=== PATIENT | male | born 1935 | race Caucasian/White ===

== ENCOUNTER 2016-12-20 14:36 | Emergency (ER) | payer MEDICARE, OTHER ==
[~2016-12-20] VITALS: Ht 182.9 cm; Wt 53.6 kg
[~2016-12-20 14:36] MED LIST: ALEN70TA2 PO; GABA-502 PO; HYDR-3479 PO; MIRT15TA6 PO; RES15 PO; SIMV80TA4 PO; WARF4TAB6 PO
[2016-12-20 14:53] VITALS: BP 117/62; PULSE 67; RESP 16; O2SAT 95
[2016-12-20 15:20] LABS: BASOPHILS % (AUTO) 0.7 % (0-3); EOSINOPHILS % (AUTO) 0.7 % (0-5); MONOCYTES % (AUTO) 8.3 % (4-12); Mean Corpuscular Hemoglobin 30.3 pg (27.0-35.0); Mean Corpuscular Volume 91.6 fL (81-100); NEUTROPHILS % (AUTO) 71.6 % (40-74); Platelet Count 285 bil/L (150-400)
--- NOTE | 2016-12-20 15:27 | ED.REPORT ---
HPI-Stroke / CVA Dec 20, 2016 ED Provider: Hima Bryan MD The pt is a 81 y/o male w/ a hx of hyperlipidemia and a pulmonary embolism presenting to the ED complaining of vision changes. He describes seeing strange colors as well as his vision "coming and going". The pt had a routine eye appointment 6 weeks ago and was told to tell his PCP that he had a "peripheral problem". His PCP then become concerned that his vision changes were due to a stroke and sent him to the ED. The pt is also experiencing a headache. Nursing Notes Stated Complaint: BLURRED VISION, NUMBNESS OF THE HANDS Chief Complaint: Stroke Symptoms Nursing Notes Reviewed: Yes (SMX, indoo.rss not reconciled -on warfarin due to hx of PE) Allergies: Coded Allergies: rosuvastatin (Verified Allergy, Unknown, 12/20/16) pt unsure of allergy Scheduled Alendronate Sodium (Fosamax) 70 Mg Tablet 70 MG PO WEEKLY (Reported) Gabapentin (Gabapentin) 300 Mg Capsule 900 MG PO TID (Reported) Mirtazapine (Mirtazapine) 15 Mg Tablet 15 MG PO HS (Reported) Simvastatin (Simvastatin) 80 Mg Tablet 80 MG PO HS (Reported) Warfarin Sodium (Warfarin Sodium) 4 Mg Tablet 4 MG PO daily except ( Reported) Warfarin Sodium (Warfarin Sodium) 4 Mg Tablet 6 MG PO every tuesday (Reported ) Scheduled PRN Hydrocodone/Acetaminophen (Vicodin 5-300 mg Tablet) 1 Each Tablet 1 EACH PO Q4 PRN PRN For Pain (Reported) Temazepam (Temazepam) 15 Mg Capsule 15 MG PO HS PRN PRN For Insomnia (Reported) General Time Seen by Provider: 16:30 Chief Complaint Other (Vision changes ) Hx Obtained From: Patient Arrived By: Walk-in Time last known well 11/05/2016 Sudden in Onset?: Yes Progression Since Onset: Intermittent Recent Healthcare: No recent hospitalization, Recent doctor visit Similar Sx Previous: No Risk Factors NIH Stroke Scale Level of Consciousness: Alert and responsive (0) Ask Month & Age: Both questions right (0) Open/Close Eyes/Hand Freezer Laboratory Technician: Performs both tasks (0) Horizontal EO Movements: None (0) Visual Marquis: Complete hemianopsia (2) (on R. pt states occured prior to today, visual symptoms have resolved ) Facial Palsy: Normal symmetry (0) Right Leg Motor Drift (5s): No drift 5 sec (0) (Has a prosthetic heavy leg) Left Leg Motor Drift (5s): No drift 5 sec (0) Limb Ataxia FNF/Heel-Alarcon: No ataxia (0) Sensation (Arms/Legs/Face): No sensory loss (0) Language Aphasia: No aphasia, normal (0) Dysarthria: No dysarthria, normal (0) Extinction/Inattention: No exctinct/inattent (0) NIHSS Score: 2 Time NIHSS Performed: 15:38 Date NIHSS Performed: Dec 20, 2016 Past Medical History Past Medical History Notes: CT Brain noncontrast PCP 12/13/16 w/old L occipital infarct Past Medical History Peripheral vascular disease Restless leg syndrome Phantom limb pain Previous L Hip Fracture Dysphagia Acute Pericarditis Heart Murmur Thrombophlebitis COPD Pneumonia Pulmonary Embolism (coumadin therapy) Gastroesphageal Reflux Anxiety R homonymous hemianopsia Reports: Hyperlipidemia Reports: Diverticulitis Past Surgical History 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 Physical Exam Initial Vital Signs Vital Signs (First) Date Time Temp Pulse Resp B/P Pulse Ox O2 Delivery O2 Flow Rate FiO2 12/20/16 14:53 37.2 67 16 117/62 95 Room Air Initial VS: Reviewed, Vital signs normal General/Constitutional: Awake, Alert Head / Eyes: Atraumatic, Normocephalic Neck: Atraumatic, Supple, Full range of motion Respiratory / Chest: Atraumatic, Breath sounds NL, Breath sounds = bilat Cardiovascular: Heart rate NL, Regular rhythm, Heart sounds NL Neurologic: Oriented X3, Speech NL ENT: Atraumatic, Airway patent Abdomen: Atraumatic, Soft, Non-tender Lower Extremity / Pelvis / MS: Inspection NL, Full range of motion Prosthetic R limb Skin: Atraumatic, Color NL, No rash, Warm, Dry Psychiatric: Mood NL Abnormal Mood/Affect: Positive: Depressed Interpretation & Diagnostics Lab Results Interpretation Result Diagram: 12/20/16 1516 12/20/16 1516 Test 12/20/16 15:16 12/20/16 17:11 White Blood Count 5.6th/mm3 (3.8-10.1) Red Blood Count 4.39mil/mm3 (4.40-5.80) Hemoglobin 13.3g/dL (13.8-17.2) Hematocrit 40.2% (41.0-50.0) Mean Corpuscular Volume 91.6fL (81-100) Mean Corpuscular Hemoglobin 30.3pg (27.0-35.0) Mean Corpuscular Hemoglobin Concent 33.1% (32.0-37.0) Red Cell Distribution Width 14.9% (12.3-15.4) Platelet Count 285bil/L (150-400) Neutrophils (%) (Auto) 71.6% (40-74) Lymphocytes (%) (Auto) 18.7% (14-46) Monocytes (%) (Auto) 8.3% (4-12) Eosinophils (%) (Auto) 0.7% (0-5) Basophils (%) (Auto) 0.7% (0-3) Prothrombin Time 19.8sec (8.1-12.5) Prothromb Time International Ratio 1.83ratio Activated Partial Thromboplast Time 33.6sec (22.8-33.0) Sodium Level 138mEq/L (134-144) Potassium Level 4.3mEq/L (3.5-5.2) Chloride Level 98mEq/L (97-108) Carbon Dioxide Level 26mmol/L (18-29) Blood Urea Nitrogen 20mg/dL (8-27) Creatinine 0.87mg/dL (0.76-1.27) Estimat Glomerular Filtration Rate 90mL/min (>59) Glucose Level 136mg/dL (60-99) Calcium Level 9.3mg/dL (8.5-10.1) Total Bilirubin 0.6mg/dL (0.0-1.2) Aspartate Amino Transf (AST/SGOT) 31U/L (0-50) Alanine Aminotransferase (ALT/SGPT) 18U/L (0-44) Alkaline Phosphatase 72U/L (25-160) Troponin T < 0.010ug/L (0.0-0.011) Total Protein 7.3g/dL (6.4-8.4) Albumin 3.9g/dL (3.4-5.0) Urine Color Yellow (YELLOW) Urine Appearance Clear (CLEAR,HAZY) Urine pH 7.0 (5.0-8.0) Urine Specific Nicasio 1.010 (1.003-1.035) Urine Protein Tracemg/dL (NEG,TRACE) Urine Glucose (UA) Negativemg/dL (NEGATIVE) Urine Ketones Negativemg/dL (NEGATIVE) Urine Occult Blood Negative (NEGATIVE) Urine Nitrite Negative (NEGATIVE) Urine Bilirubin Negative (NEGATIVE) Urine Urobilinogen Normalmg/dL (NORMAL) Urine Leukocyte Esterase Negative (NEGATIVE) Urine RBC 0-2/hpf (0-2) Urine WBC 0-5/hpf (0-5) Urine Epithelial Cells Occasional/hpf (NONE-MOD) Urine Crystals None seen (NONE SEEN) Urine Bacteria Few/hpf (NONE-FEW) Urine Hyaline Casts None/lpf (NONE) Urine Granular Casts None seen (NONE SEEN) Urine Waxy Casts None seen (NONE SEEN) Urine Red Blood Cell Casts None seen (NONE SEEN) Urine White Blood Cell Casts None seen (NONE SEEN) Urine Mucus None seen (None Seen) Urine Trichomonas None seen (NONE SEEN) Urine Yeast None (NONE SEEN) Urinalysis Comment None Urine Culture Reflexed Not indicated Lab Results Interpretation: CBC normal CMP normal ECG Interpretation ECG Interpretation: Rate 65 1st degree heart block no interval change from EKG done in 2013 Time: 15:16 Interpreted by: ED physician Normal ECG Interpretation: Normal sinus rhythm CT Head Interpretation IMPRESSION: 1. No acute intracranial abnormality. 2. Old left occipital infarct. 3. Age related atrophy and chronic deep white matter ischemic changes. Dictated by: Carlos Cash M.D. on 12/20/2016 at 15:37 Approved by: Carlos Cash M.D. on 12/20/2016 at 15:40 Study: Head CT no contrast Interpretation / Wet Read by: Interpret - Radiologist Re-Eval/Medical Decision Med Decision/Clinical Course This is an 81-year-old male on warfarin for a history of pulmonary emboli who has recently been seen by the shipping and receiving weigher and found to have a hemianopsia, and then was followed by the PCP perform noncontrast head CT revealed a old occipital infarct a few days ago. Today he reports he had a brief episode of visual symptoms, he has a difficult time describing what they were, as well as some left arm numbness-and both symptoms have resolved. As also depressed, as his is currently hospitalized. He is chronic pain and oxycodone. On exam I do not appreciate acute focal deficits, given his anticoagulated status, recent concern for CVA, CT imaging was pursued-and was negative. At this point an MRI is being obtained as this will help clarify the direction of anticoagulation as the patient has a clinical presentation of a TIA. Vision is not a candidate for TPA and current presentation for multitude of reasons. (Resolved symptoms, anticoagulated on warfarin with higher risk of hemorrhage, recent CVA...) If negative as the patient is marginally subtherapeutic and bridging anticoagulation could be considered if his MRI is negative. The patient's care is being turned over Dr. Shields change of shift pending MRI results Source of Hx: Old records Differential Diagnosis: Positive: Transient ischemic attack, Negative: Epidural hemorrhage, Subarachnoid hemorrhage, Subdural hemorrhage, Systemic infection Counseled Regarding: Diagnosis, Lab results, Need for follow-up, When/why to return to ED Patient Discharge & Departure Shift Change Sign-Out Patient Care Transferred: Yes Discussed Complaint(s): Yes Laboratory Evaluation: Back, reviewed by me Imaging Studies: Ordered, not yet done Impression: Primary Impression: Transient ischemic attack Transient cerebral ischemia type: unspecified Qualified Code: G45.9 - Transient cerebral ischemic attack, unspecified Additional Impression: Subtherapeutic international normalized ratio (INR) Disposition: Home Referrals: Charito Barreto MD (PCP) Care Transferred to: Dr. Shields Care Transferred at: 18:00 Scribe Attestation Portions of this note were transcribed by Italo Loya. I, Dr. Bryan personally performed the history, physical exam and medical decision-making; I reviewed and confirmed the accuracy of the information in the transcribed note. Signed by : Roman Salvador, 12/20/16 and [id number]. copies to: Charito Barreto MD, Matthew F MD Dec 20, 2016 15:27 Italo Loya Dec 20, 2016 17:47
--- NOTE | 2016-12-20 15:42 | DRSVH ---
PROCEDURE: CT BRAIN WITHOUT CONTRAST ([id number]) INDICATIONS: Stroke TECHNIQUE: Noncontrast 4.5 mm thick angled axial sections acquired from the foramen magnum to the vertex, with c oronal reformats. COMPARISON: CT brain 12/13/2016 FINDINGS: Image quality: Excellent. CSF spaces: Basal cisterns are patent. No extra-axial fluid collections. The ventricles are symmet emi in size and shape. Brain: No intracranial bleeds or masses. There is cerebral volume loss for age, with resultant vent ricular and sulcal prominence. There are periventricular and deep white matter chronic small vessel ischemic changes. Chronic left occipital infarct with ipsilateral dilatation of the occipital horn, u nchanged. Small calcification over the left tentorium unchanged. There is intracranial internal carot id artery atherosclerosis. Skull and face: Calvarium and visualized facial bones appear intact, without suspicious lesions. Sinuses: Visualized sinuses and mastoids are clear. IMPRESSION: 1. No acute intracranial abnormality. 2. Old left occipital infarct. 3. Age related atrophy and chronic deep white matter ischemic changes. Dictated by: Carlos Cash M.D. on 12/20/2016 at 15:37 Approved by: Carlos Cash M.D. on 12/20/2016 at 15:40
[2016-12-20 15:46] LABS: INR 1.83 ratio
--- NOTE | 2016-12-20 15:51 | NUR ---
Evaluation completed. Please go to "Notes" then click on "Assessments and Notes" (bottom left corner of screen). Then select appropriate discipline tab on top of screen.
[2016-12-20 15:55] LABS: TROPONIN T < 0.010 ug/L (0.0-0.011)
[2016-12-20 17:47] LABS: APPEARANCE,URINE CLEAR (CLEAR,HAZY); COLOR,URINE YELLOW (YELLOW); OCCULT BLOOD,URINE NEGATIVE (NEGATIVE); UROBILINOGEN,URINE NORMAL (NORMAL)
--- NOTE | 2016-12-20 20:41 | DRSVH ---
PROCEDURE: MRI STROKE PROTOCOL ([id number]) Pre- and post-contrast brain MRI, non-contrast brain MR angiogram, pre- and postcontrast neck MR aureliano ogram INDICATIONS: Visual loss, Left arm numbess TECHNIQUE: Brain: Noncontrast axial T1 spin echo, axial T2 fast spin echo, sagittal and axial FLAIR, coronal T2 fast spin echo, axial gradient echo, axial diffusion and ADC through the brain. After the administr ation of contrast, axial 3D VIBE of the cranial vasculature and brain. Brain MRA: Non-contrast 3-D time of flight MR angiogram, with multiple tykcwkz-gkcpeqllf-lnklewngll (MIP) reformats performed. Neck MRA: Axial and sagittal TruFISP through the neck. Coronal dynamic MR angiogram during administ ration of contrast in the arterial and venous phases, with 3-dimenstional mvvqwvz-qnbrgdbnk-msyatrkcm n (MIP) reformats constructed from subtraction images. COMPARISON: [facility], CT, CT BRAIN WO CON, 12/20/2016, 15:32. FINDINGS: Image quality: Excellent. BRAIN: The ventricular system and cortical sulci demonstrate atrophy, consistent for the patient's stated ag e. There are areas of increased T2/FLAIR signal intensity within the periventricular and subcortical white matter. There is no acute intra-or extra axial fluid collection. No acute hemorrhage, mass les ion or midline shift. Old left occipital infarction with dilation of the occipital horn is unchanged. Brainstem is unremarkable. There are no areas of restricted diffusion. Globes are symmetrical. Sinus es are aerated. Osseous structures are intact. BRAIN MR ANGIOGRAM: The posterior circulation demonstrates a left vertebral artery dominance. Basilar artery and posterio r cerebral arteries demonstrate no areas of hemodynamically significant stenosis, vascular occlusion or aneurysmal dilation. Posterior communicating arteries are within normal limits. The anterior circulation, including the anterior and middle cerebral arteries, as well as internal ca rotid arteries demonstrates no areas of hemodynamically significant stenosis, vascular occlusion or a neurysmal dilation. NECK MR ANGIOGRAM: The origins of the left and right common, internal and external carotid arteries demonstrate no areas of hemodynamically significant stenosis, vascular occlusion or aneurysmal dilation. Origins of the l eft and right vertebral arteries demonstrate no areas of hemodynamically significant stenosis, vascul ar occlusion or aneurysmal dilation. Aortic arch demonstrates conventional anatomy. Limited, visualiz ed portions subclavian vasculature are unremarkable. IMPRESSION: 1. No acute intracranial process. 2. Moderate atrophy and chronic microvascular ischemic changes. 3. No areas of hemodynamically significant stenosis, vascular occlusion or aneurysmal dilation within the anterior circulation. 4. No areas of hemodynamically significant stenosis, vascular occlusion or aneurysmal dilation within the posterior circulation. 5. No areas of hemodynamically significant stenosis, vascular occlusion or aneurysmal dilation within the neck vasculature. The estimate of stenosis included in the report of the imaging study was calculated using the NASCET method Dictated by: Sofie Byrd M.D. on 12/20/2016 at 20:34 Approved by: Sofie Byrd M.D. on 12/20/2016 at 20:39
[2016-12-20 21:18] VITALS: BP 112/61; PULSE 79; RESP 18; O2SAT 96
== END 2016-12-20 22:09 | disposition home or self-care (01) ==
LOC: EDUNIT# 14:36 → EDBD 14:36 → SED 15:34
DX: G45.9 Transient cerebral ischemic attack, unspecified (principal); R79.1 Abnormal coagulation profile; R51 Headache; J44.9 Chronic obstructive pulmonary disease, unspecified; F41.9 Anxiety disorder, unspecified; E78.5 Hyperlipidemia, unspecified; K21.9 Gastro-esophageal reflux disease without esophagitis; Z79.01 Long term (current) use of anticoagulants; Z88.8 Allergy status to other drugs, medicaments and biological substances
CPT/HCPCS: 36415; 70450; 70549; 70553; 80053; 81000; 84484; 85025; 85610; 85730; 92610; 93005; 99285; A9585

== ENCOUNTER 2017-02-10 07:58 | Inpatient (IN) | payer MEDICARE, OTHER ==
[~2017-02-10] VITALS: Ht 182.9 cm; Wt 53.4 kg
[2017-02-10] VITALS (8 sets, daily range): BP systolic 56–129; BP diastolic 58–94; PULSE 71–189; RESP 13–25; O2SAT 78–99
[2017-02-10 08:50] LABS: BASOPHILS % (AUTO) 0.5 % (0-3); EOSINOPHILS % (AUTO) 2.1 % (0-5); MONOCYTES % (AUTO) 8.1 % (4-12); Mean Corpuscular Hemoglobin 30.5 pg (27.0-35.0); Mean Corpuscular Volume 91.3 fL (81-100); NEUTROPHILS % (AUTO) 83.4 % (40-74); Platelet Count 511 bil/L (150-400)
[2017-02-10 08:56] LABS: INR 1.9 ratio
[2017-02-10] MEDS ORDERED: 0.9% Sodium Chloride 500 ML IV ONE (09:40)
--- NOTE | 2017-02-10 09:43 | DRSVH ---
PROCEDURE: X-RAY CHEST ONE VIEW, PORTABLE ([id number]) INDICATIONS: 81-year-old male with recent fall, desaturations. TECHNIQUE: One view of the chest was acquired. COMPARISON: [facility], , CHEST 1VW (PORTABLE), 04/29/2014, 8:45. [facility], , CHEST 1VW, 04/25/2014, 6:33. [facility], , CHEST 1VW, 04/23/2014, 7:41. FINDINGS: Surgical changes and devices: Patient is status post interval lower thoracic spine vertebroplasty or kyphoplasty procedures. Lungs and pleura: No pleural effusions or pneumothorax. Lungs are clear. Mediastinum: Mediastinal contours appear normal. Heart size is normal. There is aortic atheroscler osis. Bones and chest wall: No suspicious bony lesions. Overlying soft tissues appear unremarkable. IMPRESSION: No acute cardiopulmonary disease. Dictated by: Shashank Torres M.D. on 02/10/2017 at 9:40 Approved by: Shashank Torres M.D. on 02/10/2017 at 9:41
[2017-02-10 09:54] LABS: Magnesium 1.9 mg/dL (1.6-2.6)
[2017-02-10 09:55] LABS: TROPONIN T 0.01 ug/L (0.0-0.011)
--- NOTE | 2017-02-10 10:32 | DRSVH ---
PROCEDURE: CT BRAIN WITHOUT CONTRAST ([id number]) INDICATIONS: fall TECHNIQUE: Noncontrast 4.5 mm thick angled axial sections acquired from the foramen magnum to the vertex, with c oronal reformats. COMPARISON: [facility], CT, CT BRAIN WO CON, 12/20/2016, 15:32. FINDINGS: Image quality: Diagnostic. Brain: There is no acute intra-axial or extra-axial hemorrhage. Calcification/prominence of the post erior midline falx is similar to previous studies, likely representing calcifications or chronic proc ess. No extra-axial fluid collection is identified. There is no midline shift or mass effect. The or bits are grossly unremarkable. No large areas of diffusely decreased attenuation are evident within the brain to suggest diffuse cer ebral edema. Encephalomalacia involving the left occipital lobe is evident with prominent parenchyma l thinning. Small confluent regions of low attenuation within the periventricular and deep white mat ter of the supratentorial brain are similar to previous exams. Expected dilatation of the occipital horn of the left lateral ventricle is similar to the previous ex am. The ventricles and cortical sulci are unchanged since the prior study. Bones: Calvarium and visualized facial bones are grossly intact. The imaged paranasal sinuses and m astoid air cells are clear. IMPRESSION: 1. No acute intracranial hemorrhage. 2. Unchanged old left occipital infarct. 3. Chronic small vessel ischemic changes appear similar to the prior study. Dictated by: Justin Jc M.D. on 02/10/2017 at 9:28 Approved by: Justin Jc M.D. on 02/10/2017 at 9:31
--- NOTE | 2017-02-10 10:52 | DRSVH ---
PROCEDURE: CT ANGIO CHEST PULMONARY EMBOLISM ([id number]) INDICATIONS: Hypoxia, previous PE TECHNIQUE: After the administration of intravenous contrast, 2 mm thick sections acquired from the pulmonary api favio to the posterior costophrenic angles. 3-dimensional maximum intensity projection (MIP) coronal a nd sagittal reformats were then acquired through the thorax. For radiation dose reduction, the follo wing was used: automated exposure control, adjustment of mA and/or kV according to patient size. COMPARISON: [facility], CT, CHEST ANGIO-PE, 09/09/2010, 15:02. FINDINGS: Image quality: Excellent. Pulmonary arteries: Pulmonary arteries are normal in size, and demonstrate no intraluminal filling d efects to suggest central pulmonary embolism. Lungs and pleura: There is severe centrilobular emphysema with an apical predominance. Atelectasis is present in the dependent lungs bilaterally. No pleural effusion or pneumothorax. Mediastinum: Heart size is normal, without pericardial effusion. No mediastinal or hilar adenopathy . Thoracic aorta is normal in caliber and enhancement. Scattered atheromatous calcifications are pre sent within the aortic arch. Esophagus is normal in caliber, without hiatal hernia. Bones and chest wall: No suspicious bony lesions. Wedge compression deformities and prior vertebropl asties are present at T7 and T12. Ribs and thoracic spine appear intact throughout. Thyroid gland i s unremarkable. No axillary or supraclavicular adenopathy. Abdomen: A low density cystic lesion is incompletely characterized in the upper pole of the right ki dney. A low density lesion is present within the left hepatic lobe which is incompletely characterize d. Visualized upper abdominal solid organs appear normal in the early arterial phase of enhancement. IMPRESSION: 1. No acute pulmonary embolus. 2. Severe centrilobular emphysema and dependent atelectasis. 3. Renal and hepatic cystic lesions which are incompletely characterized on this limited study. Dictated by: Nuris Ram M.D. on 02/10/2017 at 10:34 Approved by: Nuris Ram M.D. on 02/10/2017 at 10:50
--- NOTE | 2017-02-10 11:28 | ED.REPORT ---
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 He has been having increasing falls and weakness recently. Last night he lost his balance and went to the ground. He did not hit his head or lose consciousness. He does not have any pain in specific areas such as hips or arms. He did spend the night on the floor as he did not want to wake up his . He is experiencing headache and dizziness recently. He is scheduled for echocardiogram, retroperitoneal ultrasound of aorta, an event monitor placement this afternoon. He states that he does not feel short of breath however upon arrival his oxygen saturation was 78. He does not have any nausea, vomiting, abdominal pain, melena, hematochezia, chest pain Nursing Notes Stated Complaint: GLF Chief Complaint: Multiple Trauma/Fall Nursing Notes Reviewed: Yes Allergies: Coded Allergies: rosuvastatin (Verified Allergy, Unknown, 12/20/16) pt unsure of allergy Scheduled Alendronate Sodium (Fosamax) 70 Mg Tablet 70 MG PO WEEKLY Gabapentin (Gabapentin) 300 Mg Capsule 900 MG PO TID Mirtazapine (Mirtazapine) 15 Mg Tablet 15 MG PO HS Simvastatin (Simvastatin) 80 Mg Tablet 80 MG PO HS Warfarin Sodium (Warfarin Sodium) 4 Mg Tablet 4 MG PO daily except Warfarin Sodium (Warfarin Sodium) 4 Mg Tablet 6 MG PO every tuesday Scheduled PRN Hydrocodone-Acetaminophen 5-300 mg (Hydrocodone-Acetaminophen 5-300 mg) 1 Each Tablet 1 TABLET PO Q4H PRN PRN For Pain Temazepam (Temazepam) 15 Mg Capsule 15 MG PO HS PRN PRN For Insomnia General Time Seen by MD: 08:25 Chief Complaint Weakness, Other (Ground level fall) Hx Obtained From: Patient, Spouse Arrived By: Ambulance Onset Occurred: 9 - 12 hours ago Symptom Duration: Since onset Caused by: Accidental (poor ventilation with hypoxia) Severity: Current: No pain currently Severity: Maximum: No pain Associated with: Denies: Abdominal pain Pertinent Negative: Pt denies other symptoms Recent Healthcare: No recent hospitalization Similar Sx Previous: Yes Past Medical History Past Medical History Notes: CT Brain noncontrast PCP 12/13/16 w/old L occipital infarct Past Medical History Peripheral vascular disease Restless leg syndrome Phantom limb pain Previous L Hip Fracture Dysphagia Acute Pericarditis Heart Murmur Thrombophlebitis COPD Pneumonia Pulmonary Embolism (coumadin therapy) Gastroesphageal Reflux Anxiety R homonymous hemianopsia Reports: Hyperlipidemia Reports: Diverticulitis Past Surgical History Right below the knee amputation secondary to peripheral vascular disease Family History noncontributory Smoking History Never Smoker Social History Does drink alcohol, quantity unknown Ambulatory Status Wheelchair Review of Systems A comprehensive 10 point review of systems was conducted with the patient and found to be negative except as above in the History of Present Illness. Full Review of Systems Constitutional: Denies: Fever Eyes: Denies: Blurred bilateral Respiratory: Denies: Shortness of breath Cardiovascular: Denies: Chest pain Male: Denies Dysuria Musculoskeletal: Denies: Back pain, Neck pain Hematologic: Denies Bleeding Endocrine: Denies: Polyphagia, Polyuria Skin: Denies Bruising Allergy / Immune: Denies: Itching Neurologic: Denies: Focal weakness, Headache Psychiatric: Denies: Change mental status Physical Exam Vital Signs Vital Signs Date Time Temp Pulse Resp B/P Pulse Ox O2 Delivery O2 Flow Rate FiO2 02/10/17 13:41 74 21 115/62 92 Room Air 02/10/17 11:29 71 18 126/58 97 Nasal Cannula 2 02/10/17 09:37 99 25 105/62 97 Nasal Cannula 2 02/10/17 08:18 36.5 105 13 129/94 78 Room Air Initial VS: Reviewed, Vital signs abnormal (hypoxia, tachycardia) Head / Eyes: Atraumatic, Normocephalic, PERRL Neck: Supple, Non-tender Abdomen / GI: Soft, Non-tender, No guarding, No rebound, No distention Back: No CVA tenderness Lymphatic: No lymphadenopathy Skin: Warm, Dry, No cyanosis Neurologic: Alert, Nonfocal Psychiatric: Mood/affect normal, Behavior normal, Normal thought content General/Constitutional: No acute distress Alertness: Positive: Sleeping but arousable Distress / Hydration: Positive: Dehydration mild Mouth: Positive: Mucous membranes dry Diminished Breath Sounds: Positive: Decreased L, Decreased R Trauma - Chest Specific: Positive: Chest wall deform bilat (pectus excavatum) Poor air movement Cardiovascular: Regular rhythm Heart Rate / Rhythm: Positive: Tachycardia Heart Sounds / Murmur: Positive: Systolic murmur present.. (III/) Lower Ext Edema: Positive: Left 2+ Lower Extremity / Pelvis / MS: Non-tender Right Leg / Calf: Positive: Swelling present... (Mild) Right BKA Interpretation & Diagnostics Lab Results Interpretation Result Diagram: 02/10/17 0830 02/10/17 0830 Test 02/10/17 08:30 02/10/17 11:30 White Blood Count 11.0th/mm3 (3.8-10.1) Red Blood Count 3.90mil/mm3 (4.40-5.80) Hemoglobin 11.9g/dL (13.8-17.2) Hematocrit 35.6% (41.0-50.0) Mean Corpuscular Volume 91.3fL (81-100) Mean Corpuscular Hemoglobin 30.5pg (27.0-35.0) Mean Corpuscular Hemoglobin Concent 33.4% (32.0-37.0) Red Cell Distribution Width 15.7% (12.3-15.4) Platelet Count 511bil/L (150-400) Neutrophils (%) (Auto) 83.4% (40-74) Lymphocytes (%) (Auto) 5.6% (14-46) Monocytes (%) (Auto) 8.1% (4-12) Eosinophils (%) (Auto) 2.1% (0-5) Basophils (%) (Auto) 0.5% (0-3) Prothrombin Time 20.6sec (8.1-12.5) Prothromb Time International Ratio 1.90ratio Sodium Level 134mEq/L (134-144) Potassium Level 4.0mEq/L (3.5-5.2) Chloride Level 93mEq/L (97-108) Carbon Dioxide Level 27mmol/L (18-29) Blood Urea Nitrogen 18mg/dL (8-27) Creatinine 0.80mg/dL (0.76-1.27) Estimat Glomerular Filtration Rate 99mL/min (>59) Glucose Level 122mg/dL (60-99) Calcium Level 9.1mg/dL (8.5-10.1) Magnesium Level 1.9mg/dL (1.6-2.6) Total Bilirubin 0.6mg/dL (0.0-1.2) Aspartate Amino Transf (AST/SGOT) 36U/L (0-50) Alanine Aminotransferase (ALT/SGPT) 25U/L (0-44) Alkaline Phosphatase 84U/L (25-160) Total Creatine Kinase 598U/L (21-232) Troponin T 0.010ug/L (0.0-0.011) Pro-B-Type Natriuretic Peptide 884.5pg/mL (0-486) Total Protein 7.2g/dL (6.4-8.4) Albumin 3.3g/dL (3.4-5.0) Lipase 23U/L (13-60) Urine Color Straw (YELLOW) Urine Appearance Hazy (CLEAR,HAZY) Urine pH 7.5 (5.0-8.0) Urine Specific Bradley 1.010 (1.003-1.035) Urine Protein Negativemg/dL (NEG,TRACE) Urine Glucose (UA) Negativemg/dL (NEGATIVE) Urine Ketones Negativemg/dL (NEGATIVE) Urine Occult Blood Trace (NEGATIVE) Urine Nitrite Negative (NEGATIVE) Urine Bilirubin Negative (NEGATIVE) Urine Urobilinogen Normalmg/dL (NORMAL) Urine Leukocyte Esterase Negative (NEGATIVE) Urine RBC 0-2/hpf (0-2) Urine WBC 0-5/hpf (0-5) Urine Epithelial Cells Occasional/hpf (NONE-MOD) Urine Crystals None seen (NONE SEEN) Urine Bacteria None/hpf (NONE-FEW) Urine Hyaline Casts None/lpf (NONE) Urine Granular Casts None seen (NONE SEEN) Urine Waxy Casts None seen (NONE SEEN) Urine Red Blood Cell Casts None seen (NONE SEEN) Urine White Blood Cell Casts None seen (NONE SEEN) Urine Mucus None seen (None Seen) Urine Trichomonas None seen (NONE SEEN) Urine Yeast None (NONE SEEN) Urinalysis Comment None Urine Culture Reflexed Not indicated Lab Results Interpretation: Elevated total creatinine kinase of 598, likely from being stuck on floor overnight. ProBNP 884.5, no previous for comparison. ECG Interpretation ECG Interpretation: Sinus rhythm at a rate of 99 Prolonged TX interval, present in previous ECG from 12/20/2012 Low voltage in extremity leads Relatively unchanged ECG from previous. Time: 08:32 ABG Interpretation ABG Interpretation: Relatively normal ABG with slightly elevated bicarbonate slightly decreased PO2. PH 7.414, PCO2 44, PaO2 67.9 bicarbonate 27.5 Exam Performed by: [facility] Exam Interpreted by: ED physician CT Head Interpretation IMPRESSION: 1. No acute intracranial hemorrhage. 2. Unchanged old left occipital infarct. 3. Chronic small vessel ischemic changes appear similar to the prior study. Dictated by: Justin Jc M.D. on 02/10/2017 at 9:28 Study: Head CT no contrast Interpretation / Wet Read by: Interpret - Radiologist CT Chest Interpretation IMPRESSION: 1. No acute pulmonary embolus. 2. Severe centrilobular emphysema and dependent atelectasis. 3. Renal and hepatic cystic lesions which are incompletely characterized on this limited study. Dictated by: Nuris Ram M.D. 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 Last night he spent the night on the floor due to falling in the carpeted jorge and not being able to get up. His EKG is essentially unchanged from previous, troponin negative, proBNP elevated at 884.5 however we have no previous for comparison. Patient's total creatinine kinase is 598 likely due to being in stuck on the floor. He has no focal pain, she has bilateral lower extremity weakness. Urinalysis does not indicate urinary tract infection. Upon initial presentation he had an O2 saturation of 79. ABG was done after being on 2 L of oxygen showed only mild elevation in bicarbonate and mild decrease in PaO2. Patient does not use oxygen at home. CT of chest shows severe central lobar emphysema and dependent atelectasis without acute pulmonary embolus. Patient remained weak and somnolent during his time in the emergency department. He is admitted to the hospital for COPD exacerbation and hypoxia, vmware consultant was notified about patient missing appointment for ultrasound studies and placement of an event monitor. He was transferred to the floor in stable condition. Source of Hx: Old records, Family Consultation : Referral / Consult Name: Radha Crotes DO Call Returned at: 13:20 Cement Kiln Operator: Will see patient, Agrees with eval, Agrees with plan, Accepts admit Counseled Regarding: Diagnosis, Lab results, Need for admission Discharge & Departure Primary Impression: COPD (chronic obstructive pulmonary disease) COPD type: COPD with acute exacerbation Qualified Code: J44.1 - Chronic obstructive pulmonary disease with (acute) exacerbation Additional Impression: Hypoxia Disposition: ADMITTED TO HOSPITAL Discharge Condition All VS Reviewed: Yes Condition: Stable Referrals: Charito Barreto MD (PCP) Attending Statement I saw and evaluated the patient independent of the resident. I agree with the plan and findings as documented above. copies to: Charito Barreto MD, William B MD Feb 10, 2017 11:28 Celina Cheney DO Feb 10, 2017 11:37
--- NOTE | 2017-02-10 11:31 | ABG ---
DateTimeAnalyzed 11:24:00 -_ pH ____7.414 - 7.320 7.420 pCO2 ___43.8__ -mmHg 41.0 51.0 pO2 ___67.9__ -mmHg 24.0 40.0 HCO3- ___27.5__ -mmol/L ABE ____3.0__ -mmol/L tHb ___10.7__ -g/dL 12.0 18.0 O2Hb ___90.7__ -% COHb ____1.0__ -% 0.0 1.5 MetHb ____0.7__ -% 0.4 1.5 sO2 ___92.3__ -% FIO2 ___28.0__ -% Drawn By jj - Date/Time Notified____ 11:31:00 -_ Liter_Flow ____2.0__ -L/min Oxygen Device 1 __CANNULA - Notified By JJ - Notified Whom __DR WINTER - B 762 -mmHg tO2 ___13.7__ -Vol% Shravan test _Positive -
--- NOTE | 2017-02-10 11:34 | ABG ---
DateTimeAnalyzed 11:24:00 -_ pH ____7.414 - 7.350 7.450 pCO2 ___43.8__ -mmHg 35.0 45.0 pO2 ___67.9__ -mmHg 69.0 116 HCO3- ___27.5__ -mmol/L 22.0 26.0 ABE ____3.0__ -mmol/L -2.0 2.0 tHb ___10.7__ -g/dL 12.0 18.0 O2Hb ___90.7__ -% COHb ____1.0__ -% 0.0 1.5 MetHb ____0.7__ -% 0.4 1.5 sO2 ___92.3__ -% FIO2 ___28.0__ -% Drawn By jj - Date/Time Notified____ 11:31:00 -_ Notified By JJ - Notified Whom __DR WINTER - B 762 -mmHg tO2 ___13.7__ -Vol% Shravan test _Positive -
[2017-02-10 12:27] LABS: APPEARANCE,URINE HAZY (CLEAR,HAZY); COLOR,URINE STRAW (YELLOW)
[2017-02-10 12:28] LABS: OCCULT BLOOD,URINE TRACE (NEGATIVE); PH,URINE 7.5 (5.0-8.0); UROBILINOGEN,URINE NORMAL (NORMAL)
[2017-02-10] MEDS ORDERED: Alum-Mag Hydrox-Simeth 30 mL Suspension PO PRN ×2 (13:15→16:10)
[2017-02-10] MEDS ORDERED: Ondansetron 2 mg/mL 2 mL Inj IVPUSH PRN ×2 (13:15→16:10)
[2017-02-10] MEDS ORDERED: Polyethylene Glycol (PEG) 17 Gm Powder PO PRN ×2 (13:15→16:10)
[2017-02-10] MEDS ORDERED: HYDR-3090 PO (15:17)
--- NOTE | 2017-02-10 15:45 | NUR ---
ADMIT TO [facility] Patient arrived from ER at 1445, denies SOB and was able to move himself from gurney to bed. Right BKA Hx of phantom pain, medications given in ER denies pain now. Telemetry ST 70's, LOC x4, but appears sleepy and to lack energy at this time. is present and reports patient has lost 40lb in last 6months, deneis diarrhea, and has recently been eating well but not gaining any weight back. reports patient has lack of energy for last 3 months, sleeping for 18 hrs last few days, and does not have energy to get up unassisted. who is primary childcare administrator is also recovering for surgery related to lung CA.
[2017-02-10] MEDS ORDERED: Heparin 5,000 Unit/mL Inj SUBQ SCH (16:30)
--- NOTE | 2017-02-10 17:29 | PCM.HPMED ---
Subjective Date of Service Feb 10, 2017 Primary Provider: Admitting Physician: Radha Cortes DO Primary Care Physician: Charito Barreto MD Attending Physician: Radha Cortes DO Allergies Coded Allergies: rosuvastatin (Verified Allergy, Unknown, 12/20/16) pt unsure of allergy PMH Social History Hx Alcohol Use: Yes Alcoholic Drinks Per Day: ONE Hx Substance Use: No Hx Tobacco Use: Yes (chewing tobacco and rare puff on cigarette) Smoking Status: Never Smoker Exam Vital Signs Vital Sign - Last Date Time Temp Pulse Resp B/P Pulse Ox O2 Delivery O2 Flow Rate FiO2 02/10/17 15:51 75 02/10/17 15:38 36.9 18 118/69 94 Room Air 02/10/17 13:56 2 Lab and Diagnostics Result Diagram: 02/10/1782902/10/17829 Assessment & Plan cc: Fall secondary to overall weakness HPI: Patient is an 81-year-old male with past medical history of peripheral arterial disease, previous CVA, previous BKA on the right secondary to arterial aneurysms, 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 The patient states that last night he was walking around however felt very weak and could not sustain himself and so he fell to the ground. The patient was on the ground for several hours he states that he did not want to wake his so he spent the night on the floor. The patient states that he did not hit his head or lose consciousness. The patient is on warfarin for previous PE. The patient states that he has been having some headaches and dizziness recently and was scheduled to follow-up with Dr. Hagan tomorrow for an echo, possible heart monitoring, and retroperitoneal ultrasound of the aorta. The patient denies any nausea, vomiting, diarrhea, generalized muscle pain, chest pain. Upon talking to the she states that the patient has had a 60 pound weight gain despite increasing his calories with ice cream and cookies. She also states that he has had increasing weakness as well as some signs of dementia. Both the patient and his reports store in regard to the patient's medical history is they are both unsure of when the patient had a CVA which she believes was September 2015 and neither of them are aware that the patient has a PE or why he is taking warfarin. 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 FHx: Father had peripheral arterial disease and arterial aneurysms in the leg, coronary artery disease Mother had multiple GI issues SocHx: Tobacco history: One pack per day for 60 years quit 2-3 years ago, currently still using e-cigarette and chewing tobacco Alcohol use: 4-6 ounces of vodka daily Drug use: Patient denies ROS: A complete review of systems was performed or attempted to be performed. Please see HPI for pertinent positives, all other systems are negatives. Physical Exam: GEN: Patient was sleeping but easily arousable, responding appropriately to questions HEENT: Pupils equal round and reactive to light, extraocular eye muscles intact , Neck soft supple, trachea midline, nomocephalic/atraumatic CV: +S1/S2, regular rate and rhythm, systolic murmur auscultated Respiratory: CTAB, no wheezes, rales, rhonchi GI: +bowel sounds x4, soft, compressible, nontender to palpation EXT: no clubbing, cyanosis, +3 pitting edema in the left lower extremity, right BKA Neuro: Cranial nerves II-XII grossly intact Psych: mood and affect were appropriate Assessment and Plan Patient is an 81-year-old male with past medical history of peripheral arterial disease, previous CVA, 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 Who presents status post fall secondary to weakness and mild rhabdomyolysis Rhabdomyolysis, present on admission, active -Elevated CK 598 -Continue IV fluids -Continue to monitor Syncope/weakness present on admission, active -Negative UA -Echo -Abdominal aorta and iliac ultrasound to rule out stenosis (patient will need to be in a clear liquid diet for the next 24 hours in order to perform the study ) -PT/OT eval -We will consider consulting cardiology -Ultrasound of the carotids bilaterally to rule out stenosis -Continue to monitor PE, present on admission currently stable -Continue warfarin dose per pharmacy Peripheral artery disease -Continue statin Chronic pain -Continue gabapentin 900 mg 3 times a day -Continue Fosamax every Protein calorie severe malnutrition BMI 16 -Consult dietitian for caloric needs -We will consider CT for possible neoplasia DVT prophylaxis: Continue warfarin Diet: Currently clear liquid until after the patient's ultrasound of the aorta ( once patient's ultrasound has been completed then may resume regular diet with an Ensure at each meal) Code Status: DO NOT INTUBATE, but do resuscitate Disposition: Due to the nature of the patient's current diagnosis anticipated stay is greater than 2 midnight Radha Cortes DO Feb 10, 2017 17:29
--- NOTE | 2017-02-10 19:44 | PCM.ADCARE ---
Advance Care Planning Note Plan: Date: 02/10/2017 Purpose of encounter: Goals of care Parties in attendance: The patient, his (Juan Antonio), Dr. Cortes Diagnosis: Weakness Previous stroke PE Peripheral vascular disease with lower extremity aneurysm leading to right BKA Failure to thrive with protein calorie malnutrition Decisional capacity: Good Plan: The patient is aware of the current diagnosis and would like to be RESUSCITATE but DO NOT INTUBATE. The patient understands that chest compressions will be done and the patient will not be intubated. The patient and family understands that CPR will be attempted and are in agreement with this. The patient does still want other measures performed such as IV fluids, antibiotics, and possible blood transfusions. CODE STATUS: RESUSCITATE but DO NOT INTUBATE Time spent with advanced care planning: Greater than 16 minutes Radha Cortes DO Feb 10, 2017 19:43
--- NOTE | 2017-02-10 20:35 | DRSVH ---
PROCEDURE: US BILATERAL DUPLEX DOPPLER IMAGING OF THE CAROTIDS ([id number]) INDICATIONS: syncope TECHNIQUE: Color and pulse Doppler interrogation was performed of both carotid systems, with image documentation and velocity measurements. COMPARISON: None. FINDINGS: All stenosis calculations are based on NASCET criteria. Right side: Brachial blood pressure: Not evaluated, IV line in place. Common Carotid Artery(Distal) PSV: 48.90 cm/s Internal Carotid Artery PSV- Proximal: 43.70 cm/s Mid-lon.80 cm/s Distal: 45.80 cm/s EDV - Proximal: 10.10 cm/s Mid-lon.30 cm/s Distal: 13.10 cm/s External Carotid Artery(Proximal) PSV: 85 cm/s ICA/CCA PSV ratio: 1.0 Kimball scale imaging description: Mild calcific and soft plaque Percent internal carotid artery stenosis: Less than 50% stenosis. Vertebral artery: Flow direction is antegrade. Left side: Brachial blood pressure: 118/69 mm Hg. Common Carotid Artery(Distal) PSV: 52.90 cm/s Internal Carotid Artery PSV - Proximal: 70.70 cm/s Mid-lon.90 cm/s Distal: 49.80 cm/s EDV - Proximal: 14.50 cm/s Mid-lon.20 cm/s Distal: 6.30 cm/s External Carotid Artery(Proximal) PSV: 82.80 cm/s ICA/CCA PSV ratio: 1.7 Kimball scale imaging description: Mild to moderate calcific and soft plaque Percent internal carotid artery stenosis: Less than 50% stenosis. Vertebral artery: Flow direction is antegrade. IMPRESSION: Asymmetric left greater than right calcific and soft plaque at the proximal internal kaba tid artery, but with less than 50% stenosis involving these proximal vessels bilaterally. Vertebral arterial flow is antegrade in direction. Dictated by: Toan Paz M.D. on 02/10/2017 at 20:31 Approved by: Toan Paz M.D. on 02/10/2017 at 20:33
[2017-02-10] MEDS: 0.9% Sodium Chloride 1,000 ML IV SCH (21:39)
[2017-02-10] MEDS: HYDROcodone-APAP 5-325 mg Tablet PO PRN (21:52)
[2017-02-11] VITALS (8 sets, daily range): BP systolic 101–133; BP diastolic 49–80; PULSE 71–89; RESP 16–20; O2SAT 88–92
[2017-02-11 06:14] LABS: Mean Corpuscular Hemoglobin 30.4 pg (27.0-35.0); Mean Corpuscular Volume 90.9 fL (81-100)
--- NOTE | 2017-02-11 06:41 | NUR ---
O2 Sats on RA while sleeping 88-89% O2 Sats. Put on 1L NC to keep above 90 at night, now sating 92%.
[2017-02-11] MEDS: 0.9% Sodium Chloride 1,000 ML IV SCH ×3 (09:07→18:36)
[2017-02-11] MEDS: HYDROcodone-APAP 5-325 mg Tablet PO PRN ×4 (09:12→22:09)
--- NOTE | 2017-02-11 10:43 | NUR ---
Attempted eval twice this morning. Unavailable both times. Will try again. Mesfin Vuong, OT/L
--- NOTE | 2017-02-11 11:02 | NUR ---
Evaluation completed. Please go to "Notes" then click on "Assessments and Notes" (bottom left corner of screen). Then select appropriate discipline tab on top of screen.
[2017-02-11 11:14] LABS: INR 1.76 ratio
--- NOTE | 2017-02-11 11:41 | DRSVH ---
[facility] [address] [place] [address] Echocardiogram Report Name: TURNER BILL EStbetsy Date: 02/11/2017 Height: 7 2 in Hospital Exam Location: [facility] Weight: 1 18 lb Gender: Male BSA: 1.7 m2 : 1935 Age: 81 yrs BP: 125/8 0 mmHg Reason For Study: SYNCOPE Ordering Physician: JUAN MANUELIST [facility] Performed By: Breana Piña Referring Physician: Jaquan Hayden Interpretation Summary The study quality was technically difficult. The left ventricular ejection fraction is grossly normal. Left ventricular ejection fraction is estimated to be 55 +/- 5%. The aortic valve is moderately calcified. There is severe aortic stenosis. The aortic valve area is 0.91 centimeters squared by planimetry. There is no significant change in the gradient across AV, JOSH today measures less due to technical reasons. Overall the cusp separation is 0.68cm, this would be c/w severe The aortic root is moderately dilated. Procedure: The study quality was technically difficult. Images were not obtained from all of the standard acoustic windows due to the limited scope of the study. Images from the parasternal window were difficult to obtain and are suboptimal in quality. No Apical. Most of the acoustic windows were suboptimal, but the best imaging was obtained from the subcostal window. Comparison is made with the echocardiogram of 10/13/2015. The patient was in normal sinus rhythm during the exam. Left Ventricle: The left ventricular cavity is small. There is moderate proximal septal thickening noted. The left ventricular ejection fraction is grossly normal. Left ventricular ejection fraction is estimated to be 55 +/- 5%. There are no obvious focal wall motion abnormalities noted but poor endocardial definition reduces the sensitivity for the detection of such. Diastolic function could not be accurately assessed due to unobtainable data. Right Ventricle: The right ventricle is not well visualized. Atria: There is no Doppler evidence for an interatrial shunt. Mitral Valve: The mitral valve leaflets appear thickened, but open well. Aortic Valve: The aortic valve is trileaflet. The aortic valve is moderately calcified. Leaflet mobility is moderate to severely reduced. The aortic valve area is 0.91 centimeters squared by planimetry. The peak aortic velocity is 3.5 m/sec. The aortic valve mean gradient is 28 mmHg. There has been no significant change since the previous study. There is severe aortic stenosis. There is no significant change in the gradient across AV, JOSH today measures less due to technical reasons. Overall the cusp separation is 0.68cm, this would be c/w severe . Tricuspid Valve: The tricuspid valve is not well visualized, but is grossly normal. Pulmonic Valve: The pulmonic valve leaflets are thin and pliable; valve motion is normal. There is trace pulmonic regurgitation. Great Vessels: The aortic root is moderately dilated. The ascending aorta is mildly enlarged. The aortic arch is normal in size. The pulmonary artery is not well visualized, but is probably normal size. The IVC is dilated (diameter is greater than 2.1 cm) yet it collapses greater than 50% with a sniff. This suggests a right atrial pressure of 8 mm Hg. Pericardium/ Pleura There is no pericardial effusion. There is no pleural effusion. MMode/2D Measurements & Calculations LVIDd: 3.4 cm IVC diam: 2.5 cm LVOT diam: 2.4 cm JOSH (plan) LVIDs: 1.6 cm Ao root diam FS: 51.5 % : 0.91 cm2 EPSS: 0.14 cm asc Aorta Diam IVSd: 1.4 cm LVPWd: 0.95 cm Ao Arch Diam (Prox Trans): 2.9 cm LV mcgrath. diameter/BSA LV sys. diameter/BSA (cm/m^2): 2.0 (cm/m^2): 0.97 Doppler Measurements & Calculations Ao V2 max PA V2 max Ao V2 mean PA V2 mean : 345.3 cm/sec : 74.7 cm/sec : 244.9 cm/sec : 51.4 cm/sec Ao max PG PA mean PG Ao V2 VTI: 73.7 cm : 47.7 mmHg Ao mean PG PA Accel Time : 28.0 mmHg Electronically signed by: Heriberto Black on Reading Physician:02/11/2017 11:40 AM
--- NOTE | 2017-02-11 11:57 | PCM.PHAPRO ---
Progress Date of Service: Feb 11, 2017 Warfarin dosing Date INR 1.76 INR change Warf Dose 4MG Melanie Machado PharmD Feb 11, 2017 11:57
--- NOTE | 2017-02-11 14:27 | NUR ---
NUTRITION CONSULT: ASSESS: 81YO M admit s/p fall with rhabdo,syncope,PE, On Clear liquid diet for iliac ultrasound to r/o stenosis, notes indicate consideration of CT for possible neoplasia with pt 60lb weight loss x 1 year. Spoke with pt and SO re weight loss. Pt reports feels that it may have been "mental" just wasn't eating much, does report that po intake has increased recently, drinks Ensure daily and cooks using high kcal cooking techniques. Pt prefers vanilla Ensure, very pleasant elderly gentleman. PMHX: PAD,CVA, R BKA DIET: Clear Liquid. LABS: Alb 2.3, Glu 83,Ca 8.4, Creatinine Kinase 472 MEDS: Reviewed GI: No BM WEIGHT:53.4kg BMI: 16.0 = Underweight 34% weight loss x 1 year EST.NEEDS: WEIGHT GAIN ; -5.9% BKA (30-35kcal/k.2-1.5g/kg IBW) Kcal: 7932-1313 Pro: 90-115g NUTRITION DIAGNOSIS: (1) Severe malnutrition in context of social/environmental circumstances related to decreased po intake/appetite as evidenced by 34% weight loss x 1 year, BMI 16.0, observed hollowing in temporal region. INTERVENTION: (1) Vanilla Ensure BID once diet advanced beyond clear liquids. (2) Diet education provided re high kcal/protein foods. Pt/SO receptive. Hdt and contact information left with pt. MONITOR/EVALUATE: PO intake, lab values, weights. F/U per high risk.
--- NOTE | 2017-02-11 15:25 | NUR ---
Evaluation completed. Please go to "Notes" then click on "Assessments and Notes" (bottom left corner of screen). Then select appropriate discipline tab on top of screen.
--- NOTE | 2017-02-11 17:06 | NUR ---
Social Work: Brief Note SW visited patient's room in an attempt to complete initial assessment. Patient is out of room for a procedure. No family is at bedside. SW will revisit patient at a later time. SW will follow for needs. HAI Gallardo
--- NOTE | 2017-02-11 17:43 | NUR ---
US and Activity Clears this shift for ABD/iliac US, US at bedside at this time, advancing to general diet there after. R BKA. SBA with prosthetic to BR. Steady on feet. Using call light appropriately.
--- NOTE | 2017-02-11 19:36 | DRSVH ---
PROCEDURE: US AORTO-ILIAC/CAVA DUPLEX DOPPLER EVALUATION ([id number]) INDICATIONS: 81 year-old male with syncope. Assess for aortic aneurysm or stenosis. TECHNIQUE: Color and pulse Doppler interrogation was performed of the aorta and iliac arterial systems, with radha ge documentation. COMPARISON: [facility], CT, CT NECK CHEST ABD PELVIS W CON, 01/18/2017, 15:58. FINDINGS: Aorta: 63 cm/sec, with biphasic flow. Right lower extremity: Proximal common iliac artery: 110 cm/sec, with biphasic flow. Distal common iliac artery: 108 cm/sec, with biphasic flow. Proximal external iliac artery: 50 cm/sec, with biphasic flow. Distal external iliac artery: No flow visualized. Common femoral artery: No flow visualized. Kimball-scale imaging description: Widespread atherosclerotic plaque. Left lower extremity: Proximal common iliac artery: 139 cm/sec, with triphasic flow. Distal common iliac artery: 200 cm/sec, with triphasic flow. Proximal external iliac artery: 128 cm/sec, with triphasic flow. Distal external iliac artery: 169 cm/sec, with triphasic flow. Common femoral artery: 148 cm/sec, with triphasic flow. Kimball-scale imaging description: Diffuse atherosclerotic plaque. IMPRESSION: 1. No abdominal aortoiliac aneurysm. 2. No flow visualized within the right distal external iliac and common femoral arteries, consistent with chronic occlusion as seen on January 18, 2017 CT as well (presumably with distal reconstitution via collateral vessels). 3. Less than 50% stenoses of the left iliac and common femoral arteries from velocity criteria. Dictated by: Shashank Torres M.D. on 02/11/2017 at 19:28 Approved by: Shashank Torres M.D. on 02/11/2017 at 19:34
--- NOTE | 2017-02-11 20:36 | PCM.PNMED ---
Subjective Date of Service Feb 11, 2017 Subjective Patient was seen and examined at bedside today. Patient denies any chest pain, shortness of breath, nausea, vomiting, diarrhea. Overnight events: None Exam Vital Signs Vital Sign - Last Date Time Temp Pulse Resp B/P Pulse Ox O2 Delivery O2 Flow Rate FiO2 02/11/17 18:55 36.9 81 18 133/65 88 Room Air 02/11/17 05:43 1.00 Intake and Output 02/10/17 02/10/17 02/11/17 Cumulative From/Thru 15:00 23:00 07:00 02/10/17 08:18 - 02/11/17 06:28 Intake Total 500 ml 200 ml 718 ml 1418 ml Output Total 500 ml 500 ml Balance 500 ml -300 ml 718 ml 918 ml Intake Oral 200 ml 200 ml IV Total 500 ml 718 ml 1218 ml Output Urine Total 500 ml 500 ml Exam Physical Exam: GEN: Patient was awake, alert, responding appropriately to questions HEENT: Pupils equal round and reactive to light, extraocular eye muscles intact , Neck soft supple, trachea midline, nomocephalic/atraumatic CV: +S1/S2, regular rate and rhythm, systolic murmur auscultated Respiratory: CTAB, no wheezes, rales, rhonchi GI: +bowel sounds x4, soft, compressible, nontender to palpation EXT: no clubbing, cyanosis, edema Neuro: Cranial nerves II-XII grossly intact Psych: mood and affect were appropriate IVs and Medications Medications Reviewed: Medications were reviewed in detail Lab and Diagnostics Result Diagram: 02/11/17 0545 02/11/17 0545 Assessment & Plan Patient is an 81-year-old male with past medical history of peripheral arterial disease, previous CVA, 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 Who presents status post fall secondary to weakness and mild rhabdomyolysis Rhabdomyolysis, present on admission, resolved -Elevated CK 598 on admission currently 206 -Discontinue Continue IV fluids -Continue to monitor Syncope/weakness present on admission, active -Negative UA -Echo Echo shows EF 55% with moderate aortic valve calcification and severe aortic stenosis -Abdominal aorta and iliac ultrasound to rule out stenosis (patient will need to be in a clear liquid diet for the next 24 hours in order to perform the study ) -PT/OT eval pending -Cardiology consult (Dr. Keyes) -Ultrasound of the carotids bilaterally to rule out stenosis showed less than 50 % stenosis -Continue to monitor PE, present on admission currently stable -Continue warfarin dose per pharmacy Peripheral artery disease -Continue statin Chronic pain -Continue gabapentin 900 mg 3 times a day -Continue Fosamax every -Patient's chronic pain medication has been increased to Percocet 10-325 Every 6 hours when necessary this is back at the patient's home dose Protein calorie severe malnutrition BMI 16 -Consult dietitian for caloric needs -CT of the chest abdomen and pelvis for possible neoplasia DVT prophylaxis: Continue warfarin Diet: Resume regular diet with ensure at each meal continue to follow recommendations from speech Code Status: DO NOT INTUBATE, but do resuscitate Disposition: The patient's weakness could potentially be secondary to a neoplasm will do a CT scan in order to rule this out. Discussed this case with cardiology today (Dr. Keyes) and he feels that this is not secondary to cardiac issues but feels that his weakness is secondary to muscular skeletal issues or some sort of neoplasm. Due to the patient's aortic stenosis he will start him on a low-dose metoprolol. Patient should be ready for discharge tomorrow. Radha Cortes DO Feb 11, 2017 20:36
[2017-02-12] VITALS (9 sets, daily range): BP systolic 119–143; BP diastolic 64–80; PULSE 64–91; RESP 18–20; O2SAT 90–93
[2017-02-12] MEDS: HYDROcodone-APAP 5-325 mg Tablet PO PRN ×2 (04:48→09:34)
[2017-02-12] MEDS: 0.9% Sodium Chloride 1,000 ML IV SCH (04:49)
--- NOTE | 2017-02-12 05:52 | NUR ---
NOC activity pt reports of having phantom limb pain/sensation. Vicodin administered PRN for pain control. Denies chest pain, has been on 1.5LPM NC to keep o2 sats >90%. Pleasant and cooperative with care. HS meds administered as scheduled. pt's VSS and WNL. Telemetry monitoring noted SR 71 with occasional pvc's. Afebrile overnight. Intentional hourly rounding done.
[2017-02-12 06:18] LABS: Mean Corpuscular Hemoglobin 30.3 pg (27.0-35.0); Mean Corpuscular Volume 91.8 fL (81-100)
[2017-02-12 06:27] LABS: INR 1.86 ratio
--- NOTE | 2017-02-12 07:26 | PCM.PHAPRO ---
Progress Warfarin Management: -inr is 1.86 today. will continue with home dose of warfarin 4mg this evening Savanah Cook [facility] Feb 12, 2017 07:26
[2017-02-12] MEDS ORDERED: OXYC10TA8 PO (13:09)
--- NOTE | 2017-02-12 17:06 | NUR ---
Chart not on floor - DALTON verbally discussed and acknowledged with pt
--- NOTE | 2017-02-12 17:21 | CONS ---
[address] [address] CONSULTATION REPORT PATIENT: TURNER BILL : 1935 MR#: [id number] ADMIT: 02/10/2017 JOB ID: [id number] DATE OF SERVICE: IDENTIFICATION: Dr. Cortes has asked that I consult on this 81-year-old male admitted following a fall with concern for aortic stenosis. The patient has no previous documented cardiac history with the exception of mild to moderate aortic stenosis with an echocardiogram in 2010 that suggested mild aortic stenosis but a possible LVOT velocity. 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 He had a sestamibi study in 2013 that suggested a mild inferior defect although there was no resting scan. An echocardiogram at that time again suggested hyperdynamic function with an EF of 70% to 75% with mild aortic stenosis at the time of his hip surgery which he has tolerated well. His last echocardiogram in September 2015 again showed an ejection fraction of 70% to 75% without any focal wall motion abnormality and borderline right ventricular enlargement with low normal systolic function with a PAT estimated at 32 mmHg and CVP of 8 mmHg. There was moderate-severe biatrial enlargement with moderate aortic stenosis with a peak velocity of 3.5 m/sec but a mean gradient of only 25 mmHg and a calculated valve area of 1.3 cm2. He was seen at [facility] ED in November 2016 with visual changes concerning for possible TIA and had a head CT that suggested an old left occipital infarct and age-related atrophy but no acute changes. He was referred to Dr. Curran who saw him on January 26, 2017, because of palpitations and his aortic stenosis, but his main complaints were of malaise and weakness. He describes some mild chronic exertional dyspnea without any recent change and denied any chest discomfort or lightheadedness although describes some palpitations occasionally. An echocardiogram and event monitor were ordered but have yet to be obtained. He was admitted on February 10, 2017, with generalized weakness of his lower extremities resulting in a fall without any sense of any presyncope. He was unable to get up and was brought to the emergency department. Here, his vital signs have been relatively stable and his echocardiogram was unremarkable and he had normal cardiac enzymes. An echocardiogram was obtained which suggested significant aortic stenosis, although on my personal review of those images, his ejection fraction is likely closer to 75% to 80% with only moderate aortic valve calcification with fair although somewhat limited aortic valve leaflet mobility but clearly not severely stenotic and most likely moderate in severity with a peak velocity of 3.4 m/sec and a mean gradient of 28 mmHg, unchanged from previous. There is some chordal systolic anterior motion producing possible LVOT obstruction with a peak LVOT velocity of 6.0 m/sec. He continues to have mild right ventricular enlargement with mildly reduced function but PAP could not be estimated. His main complaint is of his lower extremity weakness and denies any significant exertional dyspnea that he thinks is out of the ordinary for his level of activity, although does become slightly dyspneic after several blocks but without any recent change. He denies any resting dyspnea. He requires the use of a walker because of his BKA. His generalized weakness has been present ever since his pelvic fracture and has had difficulty regaining strength in his legs. He denies any chest discomfort or any exertional lightheadedness. He does have occasional palpitations which he describes as an irregular but not rapid rhythm that can last 30-45 minutes, occasionally associated with some slight sense of lightheadedness but no presyncope. This has been going on for the past year without any clear change. He does not check his blood pressures at home but denies any hypertension. He does note a 50-pound weight loss over the last year which he attributes to poor appetite due to mild depression and narcotic use for his leg pain but recently says that this has improved with reduction in his narcotics. Currently, he feels that he is back to his normal baseline. CARDIAC RISK FACTORS: He denies any hypertension or diabetes. He does have hyperlipidemia, on lipid therapy. Used to smoke, but stopped in 2013 although continues to occasionally chew tobacco. There is no family history of premature coronary disease although there is a history for hypercoagulable state. 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 He has mild COPD. Hypercoagulable state with a history of stroke. 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 HOME MEDICATIONS: 1. Simvastatin 80 mg. 2. Warfarin. 3. Mirtazapine 15 mg q.h.s. 4. Gabapentin 900 mg t.i.d. 5. Fosamax 70 mg daily. FAMILY HISTORY: As above. No significant coronary artery disease. 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 He has 1-2 ounces of vodka every night. REVIEW OF SYSTEMS: A complete review is performed and is notable for the absence of any recent fevers or chills. He had loss of peripheral vision around six months ago but no recent changes. He denies any ENT problems. No cough or hemoptysis. Denies any peptic ulcer disease or GI blood loss. Denies any genitourinary complaints and specifically no hematuria. Denies any unusual musculoskeletal complaints. Denies any recent focal neurologic symptoms except for some intermittent occasional left hand numbness. No history of any thyroid disorder. He does admit to some mild depression but feels this is improving. PHYSICAL EXAMINATION: Very pleasant, thin, frail appearing elderly white male, in no distress. HR 80s and 90s. BP 142/76. O2 saturation 92% on room air. Weight is 53.4 kg. He has had a positive fluid balance of about 2.5 L. Skin: Warm and dry. HEENT: EOMI without arcus. He has several missing teeth. Lungs: Clear to auscultation and percussion without any rales or wheeze. CV: Nonpalpable PMI with a regular rate and rhythm with an occasional premature beat but a normal S1 and S2, with a 2/6 systolic ejection murmur radiating to the right carotid which has a normal brisk upstroke and is 2+. Left carotid is 2+. There are no bruits. Right femoral pulses nonpalpable but the left femoral pulse is 2+. Dorsalis pedis and posterior tibial pulses are nonpalpable on the left. JVP is around 5 cm. Abdomen: Thin but nondistended, nontender without any palpable masses or organomegaly. Normal bowel tones are present without bruits. Extremities: Right BKA but otherwise warm without clubbing, cyanosis, cyanosis, or edema although with some mild left ankle edema. Neuro: Moves all four extremities. Psych: Awake, alert, and oriented. LABORATORY: On admission, white count was 11.0 with hematocrit of 36%. Today has a white count of 7.7 with hematocrit of 31% with a platelet count of 450. Potassium is 3.7 with a BUN of 13 and a creatinine of 0.6. CK was elevated at 598, but troponins were normal. Albumin as low as 2.5. Carotid Doppler study shows less than 50% calcific plaque bilaterally. A CT angiogram showed no evidence for pulmonary embolism but did show some evidence of emphysema and some hepatic and renal cysts. Head CT showed no acute changes with only the old left occipital infarct and some small vessel disease. Chest x-ray showed clear lung griffith with a normal cardiac silhouette. ECG: Showed sinus rhythm at 99 BPM with low QRS voltage and a mild first-degree AV block with a NY interval of around 240 msec. IMPRESSION: 1. Lower extremity weakness and malaise. I do not believe this reflects a cardiac issue, and specifically I do not think that his aortic valve is to blame. While he does have moderate aortic stenosis, this does not appear to be severe and appears to be unchanged, nor are his symptoms consistent with severe aortic stenosis and his physical exam supports this. I suspect that his leg weakness is more reflective of an underlying systemic process. 2. Moderate-severe aortic stenosis. As above. While it is somewhat challenging to assess the severity, it is clearly not severe. This will need to be followed over time. 3. Possible left ventricular outflow tract obstruction. He does have mildly hyperdynamic LV systolic function with increased LVOT velocities. Attempts should be made to make sure that he stays well-hydrated and I will put him on a low-dose of beta blockade although with close observation of his NY interval in an effort to avoid any high-grade AV block. This can be followed by Dr. Curran. 4. Palpitations. The mechanism is uncertain. He could have intermittent atrial fibrillation based on his description. I agree with Dr. Curran that an event monitor should be obtained as an outpatient with further recommendations dependent upon those results. I would try to ensure that his potassium stays greater than 4. A TSH should also be checked. 5. History of hypercoagulable state, status post right below knee amputation. RECOMMENDATIONS: 1. Start low-dose metoprolol at 12.5 mg b.i.d. and follow his ECG. As long as there is no significant [place] prolongation I think he can be discharged tomorrow. 2. Encourage good hydration. 3. Make sure his potassium stays greater than 4. 4. Check a TSH. 5. Outpatient event monitoring which can be coordinated through Dr. Curran with followup with him as an outpatient. I spent 1 hour and 42 minutes reviewing the patient's medical record, examining and interviewing the patient, and documenting such.
--- NOTE | 2017-02-12 18:23 | NUR ---
Pain Unable to tolerate escalating pain, ext med history and pt recall showing oxycodone not vicodin, med rec updated, provider notified, med order adjusted, tolerating well at this time.
--- NOTE | 2017-02-12 18:40 | PCM.PNMED ---
Subjective Date of Service Feb 12, 2017 Subjective Patient was seen and examined at bedside today. Patient denies any chest pain, shortness of breath, nausea, vomiting, diarrhea. Overnight events: None Exam Vital Signs Vital Sign - Last Date Time Temp Pulse Resp B/P Pulse Ox O2 Delivery O2 Flow Rate FiO2 02/12/17 17:16 37.0 70 20 137/80 91 02/12/17 11:32 Roomair with ambuolation 02/12/17 04:52 1.50 Intake and Output 02/11/17 02/11/17 02/12/17 Cumulative From/Thru 15:00 23:00 07:00 02/10/17 08:18 - 02/12/17 00:30 Intake Total 500 ml 2257 ml 4175 ml Output Total 950 ml 800 ml 2250 ml Balance -450 ml 1457 ml 1925 ml Intake Oral 500 ml 1070 ml 1770 ml IV Total 1187 ml 2405 ml Output Urine Total 950 ml 800 ml 2250 ml # Bowel Movements 0 0 Exam Physical Exam: GEN: Patient was awake, alert, responding appropriately to questions HEENT: Pupils equal round and reactive to light, extraocular eye muscles intact , Neck soft supple, trachea midline, nomocephalic/atraumatic CV: +S1/S2, regular rate and rhythm, systolic murmurs auscultated Respiratory: CTAB, no wheezes, rales, rhonchi GI: +bowel sounds x4, soft, compressible, nontender to palpation EXT: no clubbing, cyanosis, edema, right BKA Neuro: Cranial nerves II-XII grossly intact Psych: mood and affect were appropriate IVs and Medications Medications Reviewed: Medications were reviewed in detail Lab and Diagnostics Result Diagram: 02/12/17 0546 02/12/17 0546 Assessment & Plan Patient is an 81-year-old male with past medical history of peripheral arterial disease, previous CVA, 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 Who presents status post fall secondary to weakness and mild rhabdomyolysis Rhabdomyolysis, present on admission, resolved -Elevated CK 598 -->472 on admission currently 206 -Discontinue Continue IV fluids -Continue to monitor Syncope/weakness present on admission, active -Negative UA -Echo Echo shows EF 55% with moderate aortic valve calcification and severe aortic stenosis -Abdominal aorta and iliac ultrasound to rule out stenosis (patient will need to be in a clear liquid diet for the next 24 hours in order to perform the study ) -PT/OT eval pending -Cardiology consult (Dr. Keyes) -Ultrasound of the carotids bilaterally to rule out stenosis showed less than 50 % stenosis -Continue to monitor PE, present on admission currently stable -Continue warfarin dose per pharmacy Peripheral artery disease -Continue statin Chronic pain -Continue gabapentin 900 mg 3 times a day -Continue Fosamax every -Patient's chronic pain medication has been increased to Percocet 10-325 Every 6 hours when necessary this is back at the patient's home dose Protein calorie severe malnutrition BMI 16 -Consult dietitian for caloric needs -CT of the chest abdomen and pelvis for possible neoplasia DVT prophylaxis: Continue warfarin Diet: Resume regular diet with ensure at each meal continue to follow recommendations from speech Code Status: DO NOT INTUBATE, but do resuscitate Disposition: The patient's weakness could potentially be secondary to a neoplasm will do a CT scan in order to rule this out. Discussed this case with cardiology today (Dr. Keyes) and he feels that this is not secondary to cardiac issues but feels that his weakness is secondary to muscular skeletal issues or some sort of neoplasm. Due to the patient's aortic stenosis he will start him on a low-dose metoprolol. Patient should be ready for discharge tomorrow. Radha Cortes DO Feb 12, 2017 18:40
--- NOTE | 2017-02-12 21:41 | DRSVH ---
PROCEDURE: CT CHEST, ABDOMEN AND PELVIS [facility] CONTRAST ([id number]) INDICATIONS: possible neoplasm TECHNIQUE: After the administration of oral and intravenous contrast, 5 mm thick sections acquired from the lung apices to the symphysis. 5 mm coronal and sagittal reformats were performed, with additional 7 mm c oronal MIP reformats through the lungs. For radiation dose reduction, the following was used: autom ated exposure control, adjustment of mA and/or kV according to patient size. COMPARISON: None. FINDINGS: Image quality: Excellent. CHEST: Lungs and pleura: No acute airspace opacities. Emphysematous change appears present, and there is a finding of bilateral small pleural effusions, slightly greater on the left than the right. No pneum othorax. Central and peripheral airways appear patent and normal in caliber. Mediastinum: Heart size is normal. No pericardial effusion. No new mediastinal or hilar adenopathy by size criteria, and the 3.2 x 1.9 cm area of soft tissue prominence at the right margin of the sup erior aspect of the anterior mediastinum has not changed. No new adenopathy has developed.. Thoraci c aorta and central pulmonary arteries are normal in size. Esophagus is normal in caliber. No hiata l hernia. Chest wall: No axillary or supraclavicular adenopathy by size criteria. Thyroid gland appears radha l where well visualized. ABDOMEN: Solid organs: Liver and spleen are normal in size and enhancement. Gallbladder appears normal. Dustin iary system is non dilated. Pancreas enhances normally. No adrenal nodules. Kidneys demonstrate no rmal size and enhancement, without hydronephrosis. There is a 3 mm calculus that is nonobstructive wi thin the central renal pelvis on the right Peritoneum and bowel: Bowel loops demonstrate normal wall thickness and caliber. No free fluid or a ir. Nodes and vessels: No retroperitoneal or mesenteric adenopathy by size criteria. Aorta and inferior vena cava are normal in size. Miscellaneous: No ventral hernias. PELVIS: Genitourinary: Bladder wall thickness is normal. Miscellaneous: No inguinal hernias or adenopathy. Within the pelvis note is made of patency of the distal aorta and the iliac arteries bilaterally but at the area of the bifurcation of the right commo n iliac artery the external branch is thrombosed and the interval appears patent. What appears to be reperfusion by collateral flow occurs at the groin level where surgical clips adjacent to the proxim al common femoral artery can be seen. Bones: No suspicious bony lesions. No vertebral body compression fractures. IMPRESSION: A next 1. The previously identified presumed mild adenopathy at the anterior mediastinum where soft tissue prominence at the left margin of the brachycephalic arteries is 3.2 x 1.9 cm as was previously the ca se late last month. 2. No new adenopathy seen. 3. Note is made of occlusion of the external iliac artery on the right, with reperfusion by collater al flow of the common femoral artery on the right through branches across the pelvis and from the rig ht internal iliac artery collaterals to the common femoral artery on the right. 4. Incidental note is made of a 3 mm nonobstructive calculus within the central renal pelvis of the right kidney. Several scattered simple appearing small renal cortical cysts can be seen bilaterally. Dictated by: Toan Paz M.D. on 02/12/2017 at 21:34 Approved by: Toan Paz M.D. on 02/12/2017 at 21:39
[2017-02-13 01:40] VITALS: BP 117/65; PULSE 74; RESP 18; O2SAT 88
[2017-02-13 04:29] VITALS: BP 117/65; PULSE 59; RESP 18; O2SAT 90
[2017-02-13 05:57] LABS: BASOPHILS % (AUTO) 0.9 % (0-3); EOSINOPHILS % (AUTO) 9.5 % (0-5); MONOCYTES % (AUTO) 11.8 % (4-12); Mean Corpuscular Hemoglobin 30.5 pg (27.0-35.0); Mean Corpuscular Volume 91.5 fL (81-100); Platelet Count 441 bil/L (150-400)
[2017-02-13 06:13] LABS: INR 1.73 ratio
[2017-02-13 06:21] LABS: Magnesium 1.8 mg/dL (1.6-2.6)
[2017-02-13 06:27] VITALS: PULSE 59
--- NOTE | 2017-02-13 06:53 | PCM.PHAPRO ---
Progress Warfarin Management: -inr remains subtherapeutic at 1.73. will give a one time increased dose of warfarin 6mg this evening Savanah Cook [facility] Feb 13, 2017 06:53
[2017-02-13 09:09] VITALS: BP 127/72; PULSE 90; RESP 18; O2SAT 89
[2017-02-13 10:20] VITALS: PULSE 89
[2017-02-13] MEDS ORDERED: NICO1PAT5 TOPICAL (11:32)
[2017-02-13] MEDS ORDERED: METO25TA6 PO (11:32)
--- NOTE | 2017-02-13 11:37 | PCM.DIMED ---
Discharge Instructions Date of Service Feb 13, 2017 Dates of Hospitalization Feb 10, 2017 at 13:46 Discharge Diagnosis Discharge Diagnosis First degree AV block Rhabdomyolysis Syncope/weakness PE Peripheral artery disease Chronic pain Protein calorie severe malnutrition BMI 16 Medication Instructions Additional med instructions You have been prescribed a new medication called carvedilol. Please take this medication twice a day. Diet Discharge Diet: Heart Healthy (Please drink an ensure with each meal) Activity Discharge Activity: Home Health Phyical Therapy Call your provider Call your provider for: Fever or Chills, Bleeding, Vomitting, Excessive diarrhea, Weakness (unilateral) Patient Instructions Follow-up plan Please follow up with Dr. Curran for further cardiac work up Please stop smoking Home health physical therapy has been prescribed to you to help with stability and mobility and strengthening Please drink an ensure with each meal Follow-up Provider: Danitza Curran MD Follow-up with PCP in: 2 weeks (If an appointment has not been made please call to schedule an appoinment) Provider: Charito Barreto MD Follow-up in: 1 week (If an appointment has not been made please call to schedule an appointment) Radha Cortes DO Feb 13, 2017 11:37
--- NOTE | 2017-02-13 12:55 | NUR ---
Discharge D/C to home with . D/C packet including, instructions, f/u info, RX and care notes discussed and provided. Comfortable with plan of care. Escorted off floor with all belongings via w/c and RN.
--- NOTE | 2017-02-13 14:46 | NUR ---
Social Work: Discharge Data: EMR reviewed. Patient is on day 3 of hospitalization for Exac COPD & hypoxia per H&P. Patient was reviewed in morning rounds. Patient has been deemed medically stable for discharge today per MD. Transportation will be provided by spouse. MD has ordered home health RN and PT for patient. SW met with patient and to discuss options for HH. SW role explained. SW provided patient and with home health choice list. Patient informed SW that he has received HH services in the past with [facility]. Patient states that he likes the agency and would like to use them again. SW informed patient that orders will be send to [facility]. SW called and left a voice message for Riley at [facility] and provided him with referral. Referral access has been given to [facility]. F2F has been completed by . Copy of F2F has been left at work area for Riley to pickle solution maker in AM. Assessment: Patient to discharge home with home health services. Plan: Patient will discharge home today. will provide transportation. Referral has been made to [facility] for RN and PT. F2F has been completed by . Patient has no additional needs at this time. HAI Gallardo
--- NOTE | 2017-02-13 17:14 | PCM.DC.MED ---
Discharge Summary Date of Service Feb 13, 2017 Dates of Hospitalization Date of Hospital Admission Feb 10, 2017 at 13:46 Date of Discharge: Feb 13, 2017 Providers: Admitting Physician: Radha Cortes DO Primary Care Physician: Charito Barreto MD Attending Physician: Radha Cortes DO Diagnosis at Time of Discharge Diagnosis at Time of Discharge First degree AV block Rhabdomyolysis Syncope/weakness PE Peripheral artery disease Chronic pain Protein calorie severe malnutrition BMI 16 Procedures XRay, CTs & MRIs PROCEDURE: CT CHEST, ABDOMEN AND PELVIS [facility] CONTRAST ([id number]) IMPRESSION: A next 1. The previously identified presumed mild adenopathy at the anterior mediastinum where soft tissue prominence at the left margin of the brachycephalic arteries is 3.2 x 1.9 cm as was previously the case late last month. 2. No new adenopathy seen. 3. Note is made of occlusion of the external iliac artery on the right, with reperfusion by collateral flow of the common femoral artery on the right through branches across the pelvis and from the right internal iliac artery collaterals to the common femoral artery on the right. 4. Incidental note is made of a 3 mm nonobstructive calculus within the central renal pelvis of the right kidney. Several scattered simple appearing small renal cortical cysts can be seen bilaterally. Dictated by: Toan Paz M.D. on 02/12/2017 at 21:34 Approved by: Toan Paz M.D. on 02/12/2017 at 21:39 PROCEDURE: US BILATERAL DUPLEX DOPPLER IMAGING OF THE CAROTIDS ([id number]) IMPRESSION: Asymmetric left greater than right calcific and soft plaque at the proximal internal carotid artery, but with less than 50% stenosis involving these proximal vessels bilaterally. Vertebral arterial flow is antegrade in direction. Dictated by: Toan Paz M.D. on 02/10/2017 at 20:31 Approved by: Toan Paz M.D. on 02/10/2017 at 20:33 PROCEDURE: CT ANGIO CHEST PULMONARY EMBOLISM ([id number]) IMPRESSION: 1. No acute pulmonary embolus. 2. Severe centrilobular emphysema and dependent atelectasis. 3. Renal and hepatic cystic lesions which are incompletely characterized on this limited study. Dictated by: Nuris Ram M.D. on 02/10/2017 at 10:34 Approved by: Nuris Ram M.D. on 02/10/2017 at 10:50 PROCEDURE: CT BRAIN WITHOUT CONTRAST ([id number]) IMPRESSION: 1. No acute intracranial hemorrhage. 2. Unchanged old left occipital infarct. 3. Chronic small vessel ischemic changes appear similar to the prior study. Dictated by: Justin Jc M.D. on 02/10/2017 at 9:28 Approved by: Justin Jc M.D. on 02/10/2017 at 9:31 PROCEDURE: X-RAY CHEST ONE VIEW, PORTABLE ([id number]) IMPRESSION: No acute cardiopulmonary disease. Dictated by: Shashank Torres M.D. on 02/10/2017 at 9:40 Approved by: Shashank Torres M.D. on 02/10/2017 at 9:41 Cardiac Echo Impression Echocardiogram Report Interpretation Summary The study quality was technically difficult. The left ventricular ejection fraction is grossly normal. Left ventricular ejection fraction is estimated to be 55 +/- 5%. The aortic valve is moderately calcified. There is severe aortic stenosis. The aortic valve area is 0.91 centimeters squared by planimetry. There is no significant change in the gradient across AV, JOSH today measures less due to technical reasons. Overall the cusp separation is 0.68cm, this would be c/w severe The aortic root is moderately dilated. 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 Who presents status post fall secondary to weakness and mild rhabdomyolysis. The patient stated that he got up in the middle the night to go to the bathroom however he started to feel weak and then gradually let himself go down to the ground. The patient denied hitting his head. The patient stated that he did not want to wake his so he ended up staying on the ground until morning when she found him. The patient was lying on the ground for about 6 hours. The patient was admitted for weakness and rhabdomyolysis. During the patient's stay he was given IV fluids and his rhabdomyolysis resolved. The patient was seen and evaluated by physical therapy who cleared the patient to go home but suggested that the patient continue with home health physical therapy. There was concern that the patient has protein calorie severe malnutrition with a BMI of 16 and a reported 50-60 pound weight loss in the last 4-5 months. The patient states that he has been eating and feels that he is maintaining now but there was concern that the patient may have some sort of cancerous lesion growing and he had a CT scan of the chest, abdomen, and pelvis. There was a lesion that was found in the chest however this was consistent with previous scans and there was no signs of growth. The patient states that he is aware of this lesion and it has been present for multiple years. There are no other signs of any lesions present. The patient also had an echo which showed an EF of 55% with moderate aortic valve calcification and aortic stenosis. It was also found on CT scan and the patient had some occlusion in the iliac arteries and this may be the cause of some of the patient's weakness however cardiology was consult it (Dr. Keyes) and feels that this is less likely cardiac related but more likely secondary to weakness and deconditioning. He was also found that the patient does have a first-degree AV block. The patient was started on 12.5 mg twice a day of metoprolol and has been encouraged to follow-up with his ophthalmology technician Dr. Landers. The patient is being discharged home with home health services for physical therapy in stable condition. 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 Who presents status post fall secondary to weakness and mild rhabdomyolysis Rhabdomyolysis, present on admission, resolved -Elevated CK 598 -->472 on admission currently 206 -Discontinue Continue IV fluids Syncope/weakness present on admission, active -Negative UA -Echo Echo shows EF 55% with moderate aortic valve calcification and severe aortic stenosis -Abdominal aorta and iliac ultrasound to rule out stenosis (patient will need to be in a clear liquid diet for the next 24 hours in order to perform the study ) -PT/OT eval pending -Cardiology consult (Dr. Keyes) -Ultrasound of the carotids bilaterally to rule out stenosis showed less than 50 % stenosis PE, present on admission currently stable -Continue warfarin dose per pharmacy Peripheral artery disease -Continue statin Chronic pain -Continue gabapentin 900 mg 3 times a day -Continue Fosamax every -Patient's chronic pain medication has been increased to Percocet 10-325 Every 6 hours when necessary this is back at the patient's home dose Protein calorie severe malnutrition BMI 16 -Consult dietitian for caloric needs -CT of the chest abdomen and pelvis for possible neoplasia DVT prophylaxis: Continue warfarin Diet: Resume regular diet with ensure at each meal continue to follow recommendations from speech Code Status: DO NOT INTUBATE, but do resuscitate Disposition: The patient's weakness could potentially be secondary to a neoplasm will do a CT scan in order to rule this out. Discussed this case with cardiology today (Dr. Keyes) and he feels that this is not secondary to cardiac issues but feels that his weakness is secondary to muscular skeletal issues or some sort of neoplasm. Due to the patient's aortic stenosis he will start him on a low-dose metoprolol. Patient should be ready for discharge tomorrow. Exam Vital Signs (Last) Date Time Temp Pulse Resp B/P Pulse Ox O2 Delivery O2 Flow Rate FiO2 02/13/17 10:20 89 02/13/17 09:09 37.4 18 127/72 89 Room Air 02/12/17 04:52 1.50 Exam Physical Exam: GEN: Patient was awake, alert, responding appropriately to questions HEENT: Pupils equal round and reactive to light, extraocular eye muscles intact , Neck soft supple, trachea midline, nomocephalic/atraumatic CV: +S1/S2, regular rate and rhythm, systolic murmurs auscultated Respiratory: CTAB, no wheezes, rales, rhonchi GI: +bowel sounds x4, soft, compressible, nontender to palpation EXT: no clubbing, cyanosis, edema, right BKA Neuro: Cranial nerves II-XII grossly intact Psych: mood and affect were appropriate Test 02/10/17 08:30 02/10/17 11:30 02/12/17 05:46 02/13/17 05:30 Troponin T 0.010ug/L (0.0-0.011) Pro-B-Type Natriuretic Peptide 884.5pg/mL (0-486) Lipase 23U/L (13-60) Urine Color Straw (YELLOW) Urine Appearance Hazy (CLEAR,HAZY) Urine pH 7.5 (5.0-8.0) Urine Specific Semora 1.010 (1.003-1.035) Urine Protein Negativemg/dL (NEG,TRACE) Urine Glucose (UA) Negativemg/dL (NEGATIVE) Urine Ketones Negativemg/dL (NEGATIVE) Urine Occult Blood Trace (NEGATIVE) Urine Nitrite Negative (NEGATIVE) Urine Bilirubin Negative (NEGATIVE) Urine Urobilinogen Normalmg/dL (NORMAL) Urine Leukocyte Esterase Negative (NEGATIVE) Urine RBC 0-2/hpf (0-2) Urine WBC 0-5/hpf (0-5) Urine Epithelial Cells Occasional/hpf (NONE-MOD) Urine Crystals None seen (NONE SEEN) Urine Bacteria None/hpf (NONE-FEW) Urine Hyaline Casts None/lpf (NONE) Urine Granular Casts None seen (NONE SEEN) Urine Waxy Casts None seen (NONE SEEN) Urine Red Blood Cell Casts None seen (NONE SEEN) Urine White Blood Cell Casts None seen (NONE SEEN) Urine Mucus None seen (None Seen) Urine Trichomonas None seen (NONE SEEN) Urine Yeast None (NONE SEEN) Urinalysis Comment None Urine Culture Reflexed Not indicated Total Creatine Kinase 206U/L (21-232) White Blood Count 7.0th/mm3 (3.8-10.1) Red Blood Count 3.31mil/mm3 (4.40-5.80) Hemoglobin 10.1g/dL (13.8-17.2) Hematocrit 30.3% (41.0-50.0) Mean Corpuscular Volume 91.5fL (81-100) Mean Corpuscular Hemoglobin 30.5pg (27.0-35.0) Mean Corpuscular Hemoglobin Concent 33.3% (32.0-37.0) Red Cell Distribution Width 15.6% (12.3-15.4) Platelet Count 441bil/L (150-400) Neutrophils (%) (Auto) 64.0% (40-74) Lymphocytes (%) (Auto) 13.5% (14-46) Monocytes (%) (Auto) 11.8% (4-12) Eosinophils (%) (Auto) 9.5% (0-5) Basophils (%) (Auto) 0.9% (0-3) Prothrombin Time 18.7sec (8.1-12.5) Prothromb Time International Ratio 1.73ratio Sodium Level 138mEq/L (134-144) Potassium Level 4.4mEq/L (3.5-5.2) Chloride Level 103mEq/L (97-108) Carbon Dioxide Level 26mmol/L (18-29) Blood Urea Nitrogen 17mg/dL (8-27) Creatinine 0.63mg/dL (0.76-1.27) Estimat Glomerular Filtration Rate 130mL/min (>59) Glucose Level 76mg/dL (60-99) Calcium Level 8.4mg/dL (8.5-10.1) Magnesium Level 1.8mg/dL (1.6-2.6) Total Bilirubin 0.3mg/dL (0.0-1.2) Aspartate Amino Transf (AST/SGOT) 29U/L (0-50) Alanine Aminotransferase (ALT/SGPT) 19U/L (0-44) Alkaline Phosphatase 74U/L (25-160) Total Protein 5.4g/dL (6.4-8.4) Albumin 2.6g/dL (3.4-5.0) Thyroid Stimulating Hormone (TSH) 1.610uIU/mL (0.450-4.500) Discharge Medications Discharge Medications Alendronate Sodium (Fosamax) 70 Mg Tablet 70 MG PO WEEKLY (Reported) Gabapentin (Gabapentin) 300 Mg Capsule 900 MG PO TID (Reported) Metoprolol Tartrate (Metoprolol Tartrate) 25 Mg Tablet 12.5 MG PO BID Prescribed by: RADAH CORTES DO Mirtazapine (Mirtazapine) 15 Mg Tablet 15 MG PO HS (Reported) Simvastatin (Simvastatin) 80 Mg Tablet 80 MG PO HS (Reported) Warfarin Sodium (Warfarin Sodium) 4 Mg Tablet 4 MG PO daily except ( Reported) Warfarin Sodium (Warfarin Sodium) 4 Mg Tablet 6 MG PO every tuesday (Reported ) oxyCODONE (oxyCODONE) 10 Mg Tablet 10-20 MG PO TID (Reported) As needed Nicotine 14 mg/24 hr Patch (Nicotine 14 mg/24 hr Patch) 1 Each Patch.td24 1 PATCH TOPICAL DAILY PRN PRN For Tobacco Withdrawal Prescribed by: RADHA CORTES DO Temazepam (Temazepam) 15 Mg Capsule 15 MG PO HS PRN PRN For Insomnia (Reported) Additional med instructions You have been prescribed a new medication called carvedilol. Please take this medication twice a day. Followup Plan Follow-up plan Please follow up with Dr. Curran for further cardiac work up Please stop smoking Home health physical therapy has been prescribed to you to help with stability and mobility and strengthening Please drink an ensure with each meal Discharge Diet: Heart Healthy (Please drink an ensure with each meal) Discharge Activity: Home Health Phyical Therapy Follow-up Provider: Danitza Curran MD Follow-up with PCP in: 2 weeks (If an appointment has not been made please call to schedule an appoinment) Provider: Charito Barreto MD Follow-up in: 1 week (If an appointment has not been made please call to schedule an appointment) Time spent Greater than 35 minutes copies to: Danitza Curran MD; Charito Barreto MD, Precious L DO Feb 13, 2017 17:14
== END 2017-02-13 12:38 | disposition home health service (06) | DRG 564 ==
LOC: EDBD 07:58 → SED 07:58 → EDUNIT# 07:58 → MPC 13:46
PROVIDERS: ADMIT Neuromusculoskeletal Medicine & OMM; ATTEND Neuromusculoskeletal Medicine & OMM
PROC: 4A033R1 Measurement of Arterial Saturation, Peripheral, Percutaneous Approach (ICD-10-PCS; principal; 2017-02-10)
PROC: B44HZZ3 Ultrasonography of Bilateral Lower Extremity Arteries, Intravascular (ICD-10-PCS; 2017-02-11)
DX: T79.6XXA Traumatic ischemia of muscle, initial encounter (principal); E43 Unspecified severe protein-calorie malnutrition; Z68.1 Body mass index [BMI] 19.9 or less, adult; J44.1 Chronic obstructive pulmonary disease with (acute) exacerbation; R53.1 Weakness; R55 Syncope and collapse; G89.29 Other chronic pain; I73.9 Peripheral vascular disease, unspecified; Z86.73 Personal history of transient ischemic attack (TIA), and cerebral infarction without residual deficits; Z89.511 Acquired absence of right leg below knee; Z86.711 Personal history of pulmonary embolism; Z79.01 Long term (current) use of anticoagulants; W18.39XA Other fall on same level, initial encounter; Y93.9 Activity, unspecified; Y92.018 Other place in single-family (private) house as the place of occurrence of the external cause; F17.220 Nicotine dependence, chewing tobacco, uncomplicated